=== PATIENT | female | born 1945 | race Caucasian/White ===

== ENCOUNTER 2019-07-17 14:49 | Observation (INO) | payer MEDICARE, BC, OTHER ==
[~2019-07-17] VITALS: Ht 152.4 cm; Wt 65.8 kg
[2019-07-17] MEDS ORDERED: NS 1,000 ML IV ONE (15:15)
[2019-07-17 15:32] LABS: OSMOLALITY SERUM 282 MOSM/KG (280-301)
[2019-07-17 15:34] LABS: BASO % 0.5 % (0.0-1.0); EOS # 0.2 10^3/uL (0.0-0.5); EOS % 2.6 % (0.0-3.0); HEMATOCRIT 28.3 % (36.0-47.0); HEMOGLOBIN 9.6 g/dl (12.0-15.5); LYMPH # 1.8 10^3/uL (1.5-5.0); LYMPH % 28.5 % (24.0-44.0); MEAN CORPUSCULAR HEMOGLOBIN 32.4 pg (27.0-33.0); MEAN CORPUSCULAR HGB CONC 33.9 g/dl (32.0-36.5); MEAN CORPUSCULAR VOLUME 95.6 fl (80.0-96.0); MONO # 0.7 10^3/uL (0.0-0.8); MONO % 10.1 % (0.0-5.0); NEUTROPHILS # 3.7 10^3/uL (1.5-8.5); PLATELET COUNT, AUTOMATED 149 10^3/uL (150-450); RED BLOOD COUNT 2.96 10^6/uL (4.00-5.40); WHITE BLOOD COUNT 6.4 10^3/uL (4.0-10.0)
[2019-07-17 15:41] LABS: ALBUMIN 2.8 GM/DL (3.2-5.2); ALT/SGPT 42 U/L (12-78); BILIRUBIN,DIRECT < 0.1 MG/DL (0.0-0.2); BILIRUBIN,TOTAL 0.2 MG/DL (0.2-1.0); BLOOD UREA NITROGEN 33 MG/DL (7-18); C REACTIVE PROTEIN QUANTITATIV < 0.30 MG/DL (0.00-0.30); CALCIUM LEVEL 8.7 MG/DL (8.8-10.2); CARBON DIOXIDE LEVEL 30 MEQ/L (21-32); CHLORIDE LEVEL 102 MEQ/L (98-107); CK-MB VALUE MASS 2.5 NG/ML (<3.6); CPK CREATINE PHOSPHOKINASE 86 U/L (26-192); CREATININE FOR GFR 2.93 MG/DL (0.55-1.30); GLOMERULAR FILTRATION RATE 16.8 (>39); GLUCOSE, FASTING 41 MG/DL (70-100); LIPASE 147 U/L (73-393); MB/CK RELATIVE INDEX 2.91 (< OR =4); POTASSIUM SERUM 3.6 MEQ/L (3.5-5.1); SODIUM LEVEL 136 MEQ/L (136-145); TOTAL PROTEIN 6.2 GM/DL (6.4-8.2); TROPONIN I 0.03 NG/ML (< 0.10)
[2019-07-17] MEDS ORDERED: DEXTROSE 50% 50 ML SYRINGE As Ordered ONE (15:45)
[2019-07-17] MEDS ORDERED: DEXTROSE 50% 50 ML SYRINGE IV STA (15:45)
--- NOTE | 2019-07-17 15:51 | REP ---
CT brain: 07/17/2019. Indication: Altered mental status. Stroke. Comparison: None. Technique: Unenhanced axial CT images of the brain were obtained from skull base to vertex. Findings: There is no acute intracranial hemorrhage, acute cortical infarction, mass effect or hydrocephalous. Diffuse volume loss is present. Patchy areas of abnormal cerebral hemisphere white matter hypoattenuation are noted most consistent with sequelae of chronic small vessel disease. Impression: No acute intracranial process. Electronically Signed by Arash Tillman DO 07/17/2019 03:43 P
--- NOTE | 2019-07-17 15:59 | REP ---
Portable chest, 03:31 p.m., single AP view with the the patient sitting: There are no comparisons. There are no focal infiltrates. There is mild interstitial coarsening. Cardiac size is enlarged. There is a dual-chamber pacemaker/AICD. The scott, mediastinum, skeletal structures are unremarkable. Impression: Interstitial coarsening. Cardiomegaly. Pacemaker. No comparisons. Electronically Signed by Demetrius Lamb MD 07/17/2019 03:51 P
[2019-07-17] MEDS ORDERED: LOPR1TAB6 PO (16:11)
[2019-07-17] MEDS ORDERED: JANU25TA PO (16:11)
[2019-07-17] MEDS ORDERED: QUET1TAB7 PO (16:11)
[2019-07-17 16:15] LABS: VENOUS BASE EXCESS 0.4 (-2.0-2.0); VENOUS HCO3 25.6 MEQ/L (23.0-27.0); VENOUS O2 SATURATION 97.9 % (60.0-80.0); VENOUS PARTIAL PRESSURE O2 118.7 mmHg (30.0-50.0); VENOUS PH 7.383 UNITS (7.330-7.430); VENOUS STANDARD HCO3 24.9 MEQ/L
[2019-07-17] MEDS ORDERED: IRON27TA2 PO (16:20)
[2019-07-17] MEDS ORDERED: ALLO100T PO (16:20)
[2019-07-17] MEDS ORDERED: EZET10TA21 PO (16:20)
[2019-07-17] MEDS ORDERED: OLME40TA PO (16:20)
[2019-07-17] MEDS ORDERED: FOLI400T PO (16:20)
[2019-07-17] MEDS ORDERED: ALPR0.5T3 PO (16:20)
[2019-07-17] MEDS ORDERED: B-12100021 PO (16:20)
[2019-07-17] MEDS ORDERED: AMLO5TAB6 PO (16:20)
[2019-07-17] MEDS ORDERED: FENO48TA13 PO (16:20)
[2019-07-17] MEDS ORDERED: MUPI2OI TOP (16:20)
[2019-07-17] MEDS ORDERED: BUME1TAB3 PO ×2 (16:20→18:42)
[2019-07-17] MEDS ORDERED: ASPI1TAB23 PO (16:20)
[2019-07-17] MEDS ORDERED: ROSU40TA4 PO (16:20)
[2019-07-17] MEDS ORDERED: D3-5CAP PO (16:20)
[2019-07-17] MEDS ORDERED: OMEGCAP4 PO (16:20)
[2019-07-17] MEDS ORDERED: DEXTROSE 50% 50 ML SYRINGE IV PRN (17:45)
[2019-07-17] MEDS ORDERED: GLUCOSE 4 GM CHEW TABLET PO PRN (17:45)
[2019-07-17] MEDS ORDERED: ACETAMINOPHEN TAB 650MG DOSE (2X325MG) PO PRN (17:45)
[2019-07-17] MEDS ORDERED: MAALOX 30 ML SUSP *UDC PO PRN (17:45)
[2019-07-17] MEDS ORDERED: GLUCAGON FOR INJ 1 MG VIAL (J1610) SC PRN (17:45)
[2019-07-17] MEDS ORDERED: MOM 30ML SUSPENSION UDC PO PRN (17:45)
--- NOTE | 2019-07-17 18:02 | ECGEPIP ---
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
--- NOTE | 2019-07-17 18:15 | REPVR ---
PROCEDURE INFORMATION: Exam: CT Chest Without Contrast Exam date and time: 07/17/2019 5:38 PM Clinical history: 73 years old, female; Other: Altered mental status TECHNIQUE: Imaging protocol: Computed tomography of the chest without contrast. Radiation optimization: All CT scans at this facility use at least one of these dose optimization techniques: automated exposure control; mA and/or kV adjustment per patient size (includes targeted exams where dose is matched to clinical indication); or iterative reconstruction. COMPARISON: CR PORTABLE CHEST X-RAY 07/17/2019 3:27 PM FINDINGS: Tubes, catheters and devices: IACD is present with lead tip in the right ventricle. A cardiac pacing lead is present with its tip in the right atrium. Lungs: Minimal dependent atelectasis within the lung bases. No pulmonary consolidation. Pleural space: Unremarkable. No pneumothorax. No pleural effusion. Heart: Moderate coronary atherosclerosis. Coronary artery stents. Mild cardiomegaly. Aorta: Mild atherosclerosis of the thoracic aorta. No aortic aneurysm. Lymph nodes: Unremarkable. No enlarged lymph nodes. Bones/joints: Mild degenerative spondylosis of the thoracic spine. No fracture or suspicious bone lesion. Soft tissues: Unremarkable. IMPRESSION: No acute abnormality. Electronically signed by: Aurelio Plaza On 07/17/2019 18:15:34 PM
--- NOTE | 2019-07-17 18:23 | REPVR ---
PROCEDURE INFORMATION: Exam: CT Abdomen And Pelvis Without Contrast Exam date and time: 07/17/2019 5:38 PM Clinical history: 73 years old, female; Other: Altered mental status TECHNIQUE: Imaging protocol: Computed tomography of the abdomen and pelvis without contrast. Radiation optimization: All CT scans at this facility use at least one of these dose optimization techniques: automated exposure control; mA and/or kV adjustment per patient size (includes targeted exams where dose is matched to clinical indication); or iterative reconstruction. COMPARISON: No relevant prior studies available. FINDINGS: Liver: Unremarkable. No mass. Gallbladder and bile ducts: Tiny calcified gallstones. No gallbladder wall thickening or pericholecystic inflammation. Pancreas: Unremarkable. No ductal dilation. Spleen: Unremarkable. No splenomegaly. Adrenals: Normal. No mass. Kidneys and ureters: Fluid density lesion measuring 16 mm within the left kidney mid pole, likely cyst. Unremarkable right kidney. No hydronephrosis. Stomach and bowel: Minimal colonic diverticulosis. No diverticulitis. No bowel obstruction. Unremarkable stomach. Appendix: No evidence of appendicitis. Intraperitoneal space: No free air. No significant fluid collection. Vasculature: Moderate atherosclerosis of the abdominal aorta with severe atherosclerosis of branch vessels. Lymph nodes: No enlarged lymph nodes. Bladder: Unremarkable as visualized. Reproductive: Right adnexal cystic lesion with partial rim calcification, measuring 3.2 cm. Further evaluation with pelvic ultrasound is recommended. IUD within the uterus. Unremarkable left adnexa. Bones/joints: Degenerative spondylosis of the lumbar spine with grade 1 anterolisthesis of L4. No acute fracture or suspicious bone lesion. Soft tissues: Small umbilical hernia containing fat. Soft tissue density within the subcutaneous fat of the left anterior abdominal wall, likely secondary to medication injection site. IMPRESSION: 1. No acute abnormality. 2. Cholelithiasis. 3. Severe atherosclerosis. 4. IUD within the uterus. 5. Right adnexal cystic lesion measuring 3.2 cm. Further evaluation with pelvic ultrasound is recommended. Electronically signed by: Aurelio Plaza On 07/17/2019 18:23:38 PM
--- NOTE | 2019-07-17 18:31 | HPEPDOC ---
General Date of Admission 07/17/19 Date of Service: Jul 17, 2019 Chief Complaint The patient is a 73-year-old female admitted with a reason for visit of Unresponsive. Source: Patient, Family Exam Limitations: No limitations Timing/Duration: Other Severity: Moderate Associated Symptoms: Other (, slurred speech and unresponsiveness) History of Present Illness 79 years old white female with past medical history of diabetes mellitus type 2, [place] status post stent, status post defibrillator and permanent pacemaker placement. Follows up with her physicians at [place], [place]. She has a Here and comes over frequently to visit her. As per patient's family last few days she's been having an episode of like slurred speech and confusion "like a drunk" and at sometime unresponsiveness, but again today she called fore help and she became unresponsive and 911 was called and patient was brought to emergency room. Initially the fingerstick was 120s, but later on was found to be very low in 20s,Patient was given D50 and she revived. We were called in to admit patient for observation. Patient is still has some slurred speech which is improving during the interview and offers no new complaints at the present time. Home Medications Scheduled Allopurinol (Allopurinol) 100 Mg Tablet, 100 MG PO DAILY, (Reported) Amlodipine Besylate (Amlodipine Besylate) 5 Mg Tablet, 5 MG PO DAILY, (Reported) Aspirin (Aspirin EC) 325 Mg Tablet.dr, 325 MG PO DAILY, (Reported) Brimonidine Tartrate/Timolol (Combigan 0.2%-0.5% Eye Drops) 5 Ml Drops, 1 DROP OU TID, (Reported) Bumetanide (Bumetanide) 1 Mg Tablet, 1 MG PO Q2D, (Reported) ALTERNATE DAYS Bumetanide (Bumetanide) 1 Mg Tablet, 2 MG PO Q2D, (Reported) ALTERNATE DAYS Cholecalciferol (Vitamin D3) (Vitamin D3) 1,000 Unit Tablet, 1,000 UNIT PO DAILY, (Reported) Cyanocobalamin (Vitamin B-12) (B-12) 1,000 Mcg Tablet, 1,000 MCG PO DAILY, (Reported) Ezetimibe (Ezetimibe) 10 Mg Tablet, 10 MG PO DAILY, (Reported) Fenofibrate Nanocrystallized (Fenofibrate) 48 Mg Tablet, 48 MG PO DAILY, (Reported) Ferrous Gluconate (Ferrous Gluconate) 324 Mg Tablet, 324 MG PO DAILY, (Reported) Folic Acid (Folic Acid) 1 Mg Tablet, 1 MG PO DAILY, (Reported) Metoprolol Tartrate (Lopressor) 50 Mg Tablet, 50 MG PO TID, (Reported) Olmesartan Medoxomil (Olmesartan Medoxomil) 40 Mg Tablet, 40 MG PO DAILY, (Reported) [place]-3/Dha/Epa/Fish Oil ([place]-3 Fish Oil 1,000 mg Sfgl) 1,000 Mg Capsule, 1 CAP PO BID, (Reported) Risedronate Sodium (Risedronate Sodium) 35 Mg Tablet, 35 MG PO DAILY, (Reported) Rosuvastatin Calcium (Rosuvastatin Calcium) 40 Mg Tablet, 40 MG PO DAILY, (Reported) Scheduled PRN Alprazolam (Alprazolam) 0.5 Mg Tablet, 0.5 MG PO QID PRN for sleep, (Reported) Quetiapine Fumarate (Quetiapine Fumarate) 25 Mg Tablet, 50 MG PO QPM PRN for MOOD, (Reported) Miscellaneous Medications [Comments] , (Reported) PT AND BOTH CONFUSED ABOUT WHAT PT TAKES. MED REC WAS MADE WITH EXTERNAL HISTORY WELL A MED BAG THEY BROUGHT TO THE HOSPITAL. Allergies Coded Allergies: Sulfa (Sulfonamide Antibiotics) (Verified Allergy, Unknown, unknown, 07/17/19) Past Medical History Medical History Diabetes mellitus, hypertension, PA, stent placement, defibrillator, permanent pacemaker, hyperlipidemia Surgical History , Cataract surgeries and a stent placement Family History Significant Family History: No pertinent family hx Social History * Smoker: Denies Alcohol: Denies Drugs: denies A-FIB/CHADSVASC A-FIB History Current/History of A-Fib/PAF?: No Review of Systems Constitutional: Reports: Chills, Weakness Eyes: Denies: Pain, Vision change, Conjunctivae inflammation, Eyelid inflammation, Redness, Other ENT: Denies: Head Aches, Ear Pain, Dysphagia, Sinus Congestion, Post Nasal Drip, Sore Throat, Epistaxis, Other Symptoms Skin: Denies: Rash, Lesions, Jaundice, Bruising, Itching, Dry, Breakdown, Nail Changes, Other Pulmonary: Denies: Dyspnea, Cough, Pleuritic Chest Pain, Other Symptoms Cardiovascular: Denies: Chest Pain, Palpitations, Orthopnea, Paroxysmal Noc. Dyspnea, Edema, Lt Headedness, Other Symptoms Gastrointestinal: Denies: Nausea, Vomiting, Abdominal Pain, Diarrhea, Constipation, Melena, Hematochezia, Other Symptoms Genitourinary: Denies: Dysuria, Frequency, Incontinence, Hematuria, Retention, Other Symptoms Hematologic: Denies: Bruising, Bleeding Excessively, Petecchia, Purpura, Enlarged Lymph Nodes, Other Hematologic Endocrine: Denies: Polydipsia, Polyphagia, Polyuria, Heat Intolerance, Cold Intolerance, Other Endocrine Sx Musculoskeletal: Denies: Neck Pain, Back Pain, Shoulder Pain, Arm Pain, Hand Pain, Leg Pain, Foot Pain, Joint Pain, Muscle Pain, Spasms, Other Symptoms Neurological: Reports: Change in speech, Other Symptoms (slurring of his speech later on pass and out progressively getting worse since last 2 days) Psych: Reports: Mood Normal Physical Examination General Exam: Positive: Alert Eye Exam: Positive: PERRLA, Conjunctiva & lids normal ENT Exam: Positive: Atraumatic, Mucous membr. moist/pink Neck Exam: Positive: Supple Chest Exam: Positive: Normal air movement Heart Exam: Positive: Rate Normal, Normal S1, Normal S2 Abdomen Exam: Positive: Normal bowel sounds Extremity Exam: Positive: Normal pulses Skin Exam: Positive: Nl turgor and temperature Neuro Exam: Positive: Normal Gait, Normal Speech, Strength at 5/5 X4 ext, Sensation Intact, Cranial Nerves 3-12 NL Psych Exam: Positive: Mood NL, Oriented x 3 Vital Signs Vital Signs Date Time Temp Pulse Resp B/P (MAP) Pulse Ox O2 Delivery O2 Flow Rate FiO2 07/17/19 17:15 45 101/50 (67) 96 Room Air 07/17/19 14:56 96.1 22 Laboratory Data Labs 24H Laboratory Tests 2 07/17/19 15:06: Anion Gap 4L, Glomerular Filtration Rate 16.8L, Osmolality 282, Calcium Level 8.7L, Total Bilirubin 0.2, Direct Bilirubin < 0.1, Aspartate Amino Transf (AST/SGOT) 43H, Alanine Aminotransferase (ALT/SGPT) 42, Alkaline Phosphatase 72, Total Creatine Kinase 86, Creatine Kinase MB 2.5, Creatine Kinase MB Relative Index 2.91, Troponin I 0.03, C-Reactive Protein, Quantitative < 0.30, Total Protein 6.2L, Albumin 2.8L, Albumin/Globulin Ratio 0.82L, Lipase 147, Thyroid Stimulating Hormone (TSH) 1.390 07/17/19 15:14: Immature Granulocyte % (Auto) 0.3, Neutrophils (%) (Auto) 58.0, Lymphocytes (%) (Auto) 28.5, Monocytes (%) (Auto) 10.1H, Eosinophils (%) (Auto) 2.6, Basophils (%) (Auto) 0.5, Neutrophils # (Auto) 3.7, Lymphocytes # (Auto) 1.8, Monocytes # (Auto) 0.7, Eosinophils # (Auto) 0.2, Basophils # (Auto) 0.0, Nucleated Red Blood Cells % (auto) 0.0 07/17/19 15:42: Bedside Glucose (Misc Panel) 29*L 07/17/19 15:43: Bedside Glucose (Misc Panel) 30*L 07/17/19 15:54: Blood Gas Bicarbonate Standard 24.9, Venous Blood pH 7.383, Venous Blood Partial Pressure CO2 44.0, Venous Blood Partial Pressure O2 118.7H, Venous Blood Total Carbon Dioxide 27.0, Venous Blood HCO3 25.6, Venous Blood Oxygen Saturation 97.9H, Venous Blood Base Excess 0.4, Lactic Acid Level 1.1, Ammonia 33H 07/17/19 16:29: Bedside Glucose (Misc Panel) 132H CBC/BMP Laboratory Tests 07/17/19 15:06 07/17/19 15:14 Microbiology Microbiology 07/17/19 Blood Culture, Received Pending 07/17/19 Blood Culture, Received Pending Problems (1) Syncope and collapse Status: Acute Problem Text: 73 years old white female past medical history of diabetes mellitus, PA, hypertension, hyperlipidemia, status post defibrillator, permanent pacemaker and stent placed, status post cataract surgery, had been experiencing altered mentation, confusion, syncopal-like episode, slurred speech and unresponsiveness since last 2 days, but it got worse today she completely passed out and became unresponsive and EMS arrived, her fingerstick was within normal range, but mentally she came to ER, her fingerstick was 20s and she received D5W and she revived back. Patient is still had some slurred speech while I was interviewing her, but it is progressively got better. History was obtained from her teacher learning disabled at the bedside. EKG pacemaker rhythm. Chest x-ray within normal limits. CT head no acute changes Syncope, most likely secondary to hypoglycemia Admit patient to PCU Date blood sugar every 4 hour without any coverage just to observe the numbers Hold by mouth antidiabetic meds Hold the patient's by mouth doxycycline. She is being taken as an outpatient for right foot infection Hemoglobin A1c in a.m. cbc CMP, TSH in a.m. DVT prophylaxis with Lovenox Carbohydrate consistent diet Activity as tolerated (2) Hypoglycemia Status: Acute Problem Text: Most likely secondary to an oral hypoglycemic agents and interaction with possibly doxycycline other medications such as Seroquel, which has been recently started Hold Seroquel oral hypoglycemic agents and doxycycline Monitor fingerstick blood sugar every 4 hours for 24 hours D5 half-normal saline at 70 mL per hour For the change in management as per patient's lab work (3) Diabetes mellitus Status: Chronic Problem Text: As above (4) HTN (hypertension) Status: Chronic Problem Text: Continue home meds including amlodipine and metoprolol Will monitor on telemetry Changed dosage of meds accordingly (5) HLD (hyperlipidemia) Status: Chronic Problem Text: Fasting lipids have been ordered Plan / VTE VTE Prophylaxis Ordered?: Yes LIANET TOVAR MD Jul 17, 2019 18:31
[2019-07-17] MEDS ORDERED: VITA-144 PO (18:42)
[2019-07-17] MEDS ORDERED: FERR325T16 PO (18:42)
[2019-07-17] MEDS ORDERED: RISE1TAB8 PO (18:42)
[2019-07-17] MEDS ORDERED: FOLI1TAB11 PO (18:42)
[2019-07-17] MEDS ORDERED: COMB0.2S OU (18:42)
[2019-07-17] MEDS ORDERED: COMMENTS (18:44)
[2019-07-17] MEDS: D5W/0.45% SODIUM CHLORIDE 1,000 ML IV SCH (18:58)
[2019-07-17 20:00] VITALS: BP_SYST 134; BP_SYST 160; BP_DIAS 58; BP_DIAS 64
[2019-07-17] MEDS ORDERED: ROSUVASTATIN 10 MG TAB (CRESTOR) PO SCH (21:00)
[2019-07-17] MEDS ORDERED: FENOFIBRATE 48 MG TAB (TRICOR) PO SCH (21:00)
[2019-07-17] MEDS ORDERED: EZETIMIBE 10 MG TAB (ZETIA) PO SCH (21:00)
[2019-07-17] MEDS: DOCUSATE SODIUM 100 MG CAP PO SCH (21:16)
[2019-07-17] MEDS: METOPROLOL TART 50 MG TAB PO SCH (21:16)
[2019-07-17] MEDS ORDERED: LORazepam 2 MG TAB PO PRN (22:30)
[2019-07-17] MEDS: THIAMINE 100 MG TAB PO SCH (23:17)
[2019-07-17 23:53] LABS: ETHYL ALCOHOL (ETHANOL) < 0.003 % (0.000-0.010); TROPONIN I 0.04 NG/ML (< 0.10)
[2019-07-18] VITALS: BP 148/64
[2019-07-18 04:00] VITALS: BP 132/56
[2019-07-18] MEDS: METOPROLOL TART 50 MG TAB PO SCH (05:50)
[2019-07-18 06:06] LABS: HEMATOCRIT 26.4 % (36.0-47.0); HEMOGLOBIN 8.8 g/dl (12.0-15.5); MEAN CORPUSCULAR HEMOGLOBIN 32.1 pg (27.0-33.0); MEAN CORPUSCULAR HGB CONC 33.3 g/dl (32.0-36.5); MEAN CORPUSCULAR VOLUME 96.4 fl (80.0-96.0); PLATELET COUNT, AUTOMATED 114 10^3/uL (150-450); RED BLOOD COUNT 2.74 10^6/uL (4.00-5.40); WHITE BLOOD COUNT 4.9 10^3/uL (4.0-10.0)
[2019-07-18 06:36] LABS: ALBUMIN 2.3 GM/DL (3.2-5.2); BILIRUBIN,TOTAL 0.2 MG/DL (0.2-1.0); CALCIUM LEVEL 8.2 MG/DL (8.8-10.2); CHOLESTEROL RISK RATIO 2.071 (<5); CREATININE FOR GFR 2.43 MG/DL (0.55-1.30); GLOMERULAR FILTRATION RATE 20.8 (>39); MAGNESIUM LEVEL 1.7 MG/DL (1.8-2.4); THYROID STIMULATING HORMONE 0.791 uIU/ML (0.358-3.740); TOTAL PROTEIN 5.7 GM/DL (6.4-8.2); TROPONIN I 0.02 NG/ML (< 0.10)
[2019-07-18] MEDS ORDERED: MAG SULF 1GM/100ML (MAG RUN) 1 GM in IV 1 EA IV ONE (07:30)
[2019-07-18 08:00] VITALS: BP 129/85
[2019-07-18] MEDS: D5W/0.45% SODIUM CHLORIDE 1,000 ML IV SCH (08:03)
[2019-07-18] MEDS ORDERED: MULTIVITAMINS/MINERALS THERAP 1 TAB PO SCH (09:00)
[2019-07-18] MEDS ORDERED: ALLOPURINOL 100 MG TAB PO SCH (09:00)
[2019-07-18] MEDS ORDERED: FOLIC ACID 1 MG TAB PO SCH (09:00)
[2019-07-18] MEDS ORDERED: ASPIRIN 325 MG TAB PO SCH (09:00)
[2019-07-18] MEDS ORDERED: amLODIPine 5 MG TAB PO SCH (09:00)
[2019-07-18] MEDS: DOCUSATE SODIUM 100 MG CAP PO SCH (09:04)
[2019-07-18] MEDS: THIAMINE 100 MG TAB PO SCH (09:04)
[2019-07-18 09:05] VITALS: BP 136/58
--- NOTE | 2019-07-18 09:30 | DS.PDOC ---
Discharge Summary General Date of Admission Jul 17, 2019 at 14:50 Date of Discharge 07/18/19 Discharge Summary PROCEDURES PERFORMED DURING STAY: None. ADMITTING DIAGNOSES: 1. Hypoglycemia. Syncope and collapse. DISCHARGE DIAGNOSES: 1. , Hypoglycemia, syncope and collapse, diabetes mellitus, hypertriglyce ridemia, hyperlipidemia, mood disorder. COMPLICATIONS/CHIEF COMPLAINT: Hypoglycemia/Syncope And Collapse. HISTORY OF PRESENT ILLNESS: 79 years old white female with past medical history of diabetes mellitus type 2, [place] status post stent, status post defibrillator and permanent pacemaker placement. Follows up with her physicians at [place], [place]. She has a Here and comes over frequently to visit her. As per patient's family last few days she's been having an episode of like slurred speech and confusion "like a drunk" and at sometime unresponsiveness, but again today she called fore help and she became unresponsive and 911 was called and patient was brought to emergency room. Initially the fingerstick was 120s, but later on was found to be very low in 20s,Patient was given D50 and she revived. We were called in to admit patient for observation. Patient is still has some slurred speech which is improving during the interview and offers no new complaints at the present time.. HOSPITAL COURSE: [Patient was admitted with the diagnoses of syncope: Secondary to hypoglycemia with patient been feeling last 2 days and has not been eating. He regularly as she is been trying to close her Up.. The Patient Was Started on D5 Half-Normal Saline. All Her Oral Hypoglycemic Agents Were on Hold. Her Blood Sugar Is 130 Now. She Is Alert, Oriented 3, in No Apparent Distress and Has Been Maintaining Her Blood Sugar More Than 70. She wants to go home and follow with her own primary care physician at [place], [place]. Will DC patient's doxycycline and adjust her insulin dosage and hold her by mouth oral hypoglycemic agents and discharge her. She can follow with her own physician in the 2-3 days and get her polypharmacy corrected and diabetic management corrected. Patient's hemoglobin A1c is 8. . Patient was also advised to see her CANCER REGISTRY COORDINATOR and get her in the 10 IUD removed as soon as possible to avoid any perforation or infection DISCHARGE MEDICATIONS: Please see below. ALLERGIES: Please see below. PHYSICAL EXAMINATION ON DISCHARGE: VITAL SIGNS: Please see below. GENERAL: Within normal limits HEENT: PERRLA, extraocular muscles intact NECK: Supple CARDIOVASCULAR EXAMINATION: S1, S2, regular RESPIRATORY EXAMINATION: Clear to A&P ABDOMINAL EXAMINATION: , Soft, nontender, bowel sound present EXTREMITIES: No clubbing, cyanosis edema SKIN: Normal NEUROLOGICAL EXAMINATION: . No focal motor sensory deficit PSYCHIATRIC EXAMINATION: Normal LABORATORY DATA: Please see below. IMAGING: CT abdomen and pelvis:IMPRESSION: 1. No acute abnormality. 2. Cholelithiasis. 3. Severe atherosclerosis. 4. IUD within the uterus. 5. Right adnexal cystic lesion measuring 3.2 cm. Further evaluation with pelvic ultrasound is recommended. PROGNOSIS: Good ACTIVITY: As tolerated. DIET: About a consistent diet DISCHARGE PLAN: Follow with PCP soon as possible DISPOSITION: . Home DISCHARGE INSTRUCTIONS: 1. As per discharge instructions. ITEMS TO FOLLOWUP ON ON OUTPATIENT: 1. Follow with PCP. DISCHARGE CONDITION: Stable. TIME SPENT ON DISCHARGE: 35 minutes. Vital Signs/I&Os Vital Signs Date Time Temp Pulse Resp B/P (MAP) Pulse Ox O2 Delivery O2 Flow Rate FiO2 07/18/19 09:05 80 136/58 07/18/19 04:00 97.3 18 99 Room Air I&O- Last 24 Hours up to 6 AM 07/18/19 06:00 Intake Total 1850 ml Output Total 450 ml Balance 1400 ml Laboratory Data Labs 24H Laboratory Tests 2 07/17/19 15:06: Anion Gap 4L, Glomerular Filtration Rate 16.8L, Osmolality 282, Calcium Level 8.7L, Total Bilirubin 0.2, Direct Bilirubin < 0.1, Aspartate Amino Transf (AST/SGOT) 43H, Alanine Aminotransferase (ALT/SGPT) 42, Alkaline Phosphatase 72, Total Creatine Kinase 86, Creatine Kinase MB 2.5, Creatine Kinase MB Relative I ndex 2.91, Troponin I 0.03, C-Reactive Protein, Quantitative < 0.30, Total Protein 6.2L, Albumin 2.8L, Albumin/Globulin Ratio 0.82L, Lipase 147, Thyroid Stimulating Hormone (TSH) 1.390 07/17/19 15:14: Immature Granulocyte % (Auto) 0.3, Neutrophils (%) (Auto) 58.0, Lymphocytes (%) (Auto) 28.5, Monocytes (%) (Auto) 10.1H, Eosinophils (%) (Auto) 2.6, Basophils (%) (Auto) 0.5, Neutrophils # (Auto) 3.7, Lymphocytes # (Auto) 1.8, Monocytes # (Auto) 0.7, Eosinophils # (Auto) 0.2, Basophils # (Auto) 0.0, Nucleated Red Blood Cells % (auto) 0.0 07/17/19 15:42: Bedside Glucose (Misc Panel) 29*L 07/17/19 15:43: Bedside Glucose (Misc Panel) 30*L 07/17/19 15:54: Blood Gas Bicarbonate Standard 24.9, Venous Blood pH 7.383, Venous Blood Partial Pressure CO2 44.0, Venous Blood Partial Pressure O2 118.7H, Venous Blood Total Carbon Dioxide 27.0, Venous Blood HCO3 25.6, Venous Blood Oxygen Saturation 97.9H, Venous Blood Base Excess 0.4, Lactic Acid Level 1.1, Ammonia 33H 07/17/19 16:29: Bedside Glucose (Misc Panel) 132H 07/17/19 21:15: Bedside Glucose (Misc Panel) 108 07/17/19 22:56: Troponin I 0.04#, Ethyl Alcohol Level < 0.003 07/18/19 01:15: Urine Color STRAW, Urine Appearance HAZY, Urine pH 5.0, Urine Specific [place] 1.004, Urine Protein 2+H, Urine Glucose (UA) NEGATIVE, Urine Ketones NEGATIVE, Urine Blood 1+H, Urine Nitrite NEGATIVE, Urine Bilirubin NEGATIVE, Urine Urobilinogen 0.2, Urine Leukocyte Esterase NEGATIVE, Urine WBC (Auto) 3, Urine RBC (Auto) 4H, Urine Hyaline Casts (Auto) 8, Urine Bacteria (Auto) NEGATIVE, Urine Squamous Epithelial Cells 0, Urine Mucus (Auto) SMALL, Urine Sperm (Auto) 07/18/19 01:56: Bedside Glucose (Misc Panel) 133H 07/18/19 05:33: Nucleated Red Blood Cells % (auto) 0.0, Anion Gap 5L, Glomerular Filtration Rate 20.8L, Estimated Mean Plasma Glucose 183H, Hemoglobin A1c 8.0, Calcium Level 8.2L, Magnesium Level 1.7L, Total Bilirubin 0.2, Aspartate Amino Transf (AST/SGOT) 68H, Alanine Aminotransferase (ALT/SGPT) 52, Alkaline Phosphatase 63, Troponin I 0.02#, Total Protein 5.7L, Albumin 2.3L, Albumin/Globulin Ratio 0.68L, Triglycerides Level 172H, Total Cholesterol 87, LDL Cholesterol 11, Non- HDL Cholesterol (LDL + VLDL) 45, Total HDL Cholesterol 42, Cholesterol/HDL Ratio 2.071, Thyroid Stimulating Hormone (TSH) 0.791 CBC/BMP Laboratory Tests 07/17/19 15:06 07/17/19 15:14 07/18/19 05:33 FSBS Laboratory Tests Test 07/17/19 15:42 07/17/19 15:43 07/17/19 16:29 07/17/19 21:15 Range/Units Bedside Glucose (Misc Panel) 29 30 132 108 83-110 MG/DL Test 07/18/19 01:56 Range/Units Bedside Glucose (Misc Panel) 133 83-110 MG/DL Microbiology Microbiology 07/17/19 Blood Culture, Received Pending 07/17/19 Blood Culture, Received Pending Discharge Medications Scheduled Allopurinol (Allopurinol) 100 Mg Tablet, 100 MG PO DAILY, (Reported) Amlodipine Besylate (Amlodipine Besylate) 5 Mg Tablet, 5 MG PO DAILY, (Reported) Aspirin (Aspirin EC) 325 Mg Tablet.dr, 325 MG PO DAILY, (Reported) Brimonidine Tartrate/Timolol (Combigan 0.2%-0.5% Eye Drops) 5 Ml Drops, 1 DROP OU TID, (Reported) Bumetanide (Bumetanide) 1 Mg Tablet, 1 MG PO Q2D, (Reported) ALTERNATE DAYS Bumetanide (Bumetanide) 1 Mg Tablet, 2 MG PO Q2D, (Reported) ALTERNATE DAYS Cholecalciferol (Vitamin D3) (Vitamin D3) 1,000 Unit Tablet, 1,000 UNIT PO DAILY, (Reported) Cyanocobalamin (Vitamin B-12) (B-12) 1,000 Mcg Tablet, 1,000 MCG PO DAILY, (Reported) Ezetimibe (Ezetimibe) 10 Mg Tablet, 10 MG PO DAILY, (Reported) Fenofibrate Nanocrystallized (Fenofibrate) 48 Mg Tablet, 48 MG PO DAILY, (Reported) Ferrous Gluconate (Ferrous Gluconate) 324 Mg Tablet, 324 MG PO DAILY, (Reported) Folic Acid (Folic Acid) 1 Mg Tablet, 1 MG PO DAILY, (Reported) Metoprolol Tartrate (Lopressor) 50 Mg Tablet, 50 MG PO TID, (Reported) Olmesartan Medoxomil (Olmesartan Medoxomil) 40 Mg Tablet, 40 MG PO DAILY, (Reported) [place]-3/Dha/Epa/Fish Oil ([place]-3 Fish Oil 1,000 mg Sfgl) 1,000 Mg Capsule, 1 CAP PO BID, (Reported) Risedronate Sodium (Risedronate Sodium) 35 Mg Tablet, 35 MG PO DAILY, (Reported) Rosuvastatin Calcium (Rosuvastatin Calcium) 40 Mg Tablet, 40 MG PO DAILY, (Reported) Scheduled PRN Alprazolam (Alprazolam) 0.5 Mg Tablet, 0.5 MG PO QID PRN for sleep, (Reported) Quetiapine Fumarate (Quetiapine Fumarate) 25 Mg Tablet, 50 MG PO QPM PRN for MOOD, (Reported) Miscellaneous Medications [Comments] , (Reported) PT AND BOTH CONFUSED ABOUT WHAT PT TAKES. MED REC WAS MADE WITH EXTERNAL HISTORY WELL A MED BAG THEY BROUGHT TO THE HOSPITAL. Allergies Coded Allergies: Sulfa (Sulfonamide Antibiotics) (Verified Allergy, Unknown, unknown, 07/17/19) LIANET TOVAR MD Jul 18, 2019 09:30
[2019-07-18 12:00] VITALS: BP 172/62
== END 2019-07-18 14:02 | disposition home or self-care (01) ==
LOC: M ED 14:49 → EDBD 14:49 → M ED INP 14:50 → M PCU 19:56
PROVIDERS: ADMIT Internal Medicine; ATTEND Internal Medicine
DX: E11.649 Type 2 diabetes mellitus with hypoglycemia without coma (principal); R55 Syncope and collapse; I10 Essential (primary) hypertension; E78.49 Other hyperlipidemia; I25.2 Old myocardial infarction; Z95.0 Presence of cardiac pacemaker; Z95.810 Presence of automatic (implantable) cardiac defibrillator; Z98.61 Coronary angioplasty status; Z79.82 Long term (current) use of aspirin; Z79.899 Other long term (current) drug therapy; Z88.2 Allergy status to sulfonamides
CPT/HCPCS: 36415; 70450; 71045; 71250; 74176; 80048; 80053; 80061; 80076; 81001; 82140; 82550; 82553; 82803; 83036; 83605; 83690; 83735; 83930; 84443; 84484; 85025; 85027; 86140; 87040; 93005; 93041; 96361; 96374; 99285; G0378; G0480; J3475

== ENCOUNTER 2020-06-19 18:15 | Emergency (ER) | payer MEDICARE, BC, OTHER ==
[~2020-06-19] VITALS: Ht 152.4 cm; Wt 61.4 kg
[~2020-06-19 18:15] MED LIST: ALLO100T PO; ALPR0.5T3 PO; AMLO1TAB24 PO; ASPI1TAB23 PO; B-12100021 PO; BUME1TAB3 PO; COMB0.2S OU; COMMENTS; D3-5CAP PO; EZET10TA21 PO; FENO48TA7 PO; FERR325T16 PO; FOLI1TAB11 PO; FOLI400T PO; IRON27TA2 PO; JANU25TA PO; LOPR1TAB6 PO; MUPI2OI TOP; OLME40TA PO; OMEGCAP4 PO; QUET1TAB7 PO; RISE1TAB8 PO; ROSU40TA4 PO; VITA-144 PO
[2020-06-19 18:51] LABS: VENOUS BASE EXCESS -2.6 (-2.0-2.0); VENOUS HCO3 23.7 MEQ/L (23.0-27.0); VENOUS PARTIAL PRESSURE CO2 46.9 mmHg (38.0-50.0); VENOUS PARTIAL PRESSURE O2 32.2 mmHg (30.0-50.0); VENOUS PH 7.321 UNITS (7.330-7.430); VENOUS STANDARD HCO3 21.5 MEQ/L; VENOUS TOTAL CO2 25.1 MEQ/L (24.0-28.0)
[2020-06-19 18:55] LABS: BASO % 0.6 % (0.0-1.0); EOS % 0.6 % (0.0-3.0); HEMATOCRIT 35.4 % (36.0-47.0); HEMOGLOBIN 11.6 g/dl (12.0-15.5); MEAN CORPUSCULAR HGB CONC 32.8 g/dl (32.0-36.5); MEAN CORPUSCULAR VOLUME 100.9 fl (80.0-96.0); MONO # 0.4 10^3/uL (0.0-0.8); MONO % 5.3 % (0.0-5.0); NEUTROPHILS # 5.7 10^3/uL (1.5-8.5); NEUTROPHILS % 79.2 % (36.0-66.0); PLATELET COUNT, AUTOMATED 205 10^3/uL (150-450); RED BLOOD COUNT 3.51 10^6/uL (4.00-5.40); WHITE BLOOD COUNT 7.2 10^3/uL (4.0-10.0)
[2020-06-19 19:33] LABS: ALT/SGPT 39 U/L (12-78); BILIRUBIN,DIRECT < 0.1 MG/DL (0.0-0.2); BILIRUBIN,TOTAL 0.4 MG/DL (0.2-1.0); TOTAL PROTEIN 6.9 GM/DL (6.4-8.2)
--- NOTE | 2020-06-19 19:33 | REPVR ---
PROCEDURE INFORMATION: Exam: XR Chest, 1 View Exam date and time: 06/19/2020 6:58 PM Age: 74 years old Clinical indication: Chest pain; Additional info: Altered mental status TECHNIQUE: Imaging protocol: XR of the chest Views: 1 view. COMPARISON: Chest x-ray 07/17/2019 FINDINGS: Lungs: No pulmonary consolidation. Linear density superimposed over the left midlung zone just inferior to the cardiac pacer battery consistent with linear atelectasis and/or scar. Pleural space: Unremarkable. No pleural effusion. No pneumothorax. Heart/Mediastinum: The heart is enlarged. A dual lead cardiac pacer/IACD with lead tips superimposed over the cardiac silhouette is unchanged in appearance. Bones/joints: Incompletely healed impacted fracture of the right humerus surgical neck. IMPRESSION: No acute abnormality. Electronically signed by: Aurelio Plaza On 06/19/2020 19:33:25 PM
--- NOTE | 2020-06-19 19:37 | REPVR ---
PROCEDURE INFORMATION: Exam: CT Head Without Contrast Exam date and time: 06/19/2020 6:53 PM Age: 74 years old Clinical indication: Altered mental status/memory loss TECHNIQUE: Imaging protocol: Computed tomography of the head without contrast. Radiation optimization: All CT scans at this facility use at least one of these dose optimization techniques: automated exposure control; mA and/or kV adjustment per patient size (includes targeted exams where dose is matched to clinical indication); or iterative reconstruction. COMPARISON: Head CT 07/17/2019 FINDINGS: Brain: Global cerebral atrophy is consistent with patient's age. Decreased attenuation within the white matter tracts of both cerebral hemispheres is nonspecific but typically seen with small vessel disease/chronic white matter ischemic changes of aging. No intracranial hemorrhage or mass effect. Cerebral ventricles: No ventriculomegaly. Bones/joints: Unremarkable. No acute fracture. Paranasal sinuses: Visualized sinuses are unremarkable. No fluid levels. Mastoid air cells: Visualized mastoid air cells are well aerated. Vasculature: Atherosclerosis of the cavernous carotid arteries. Soft tissues: Unremarkable. IMPRESSION: No acute abnormality. Electronically signed by: Aurelio Plaza On 06/19/2020 19:37:23 PM
--- NOTE | 2020-06-19 19:40 | REPVR ---
PROCEDURE INFORMATION: Exam: US Duplex Lower Extremity Veins, Bilateral Exam date and time: 06/19/2020 7:33 PM Age: 74 years old Clinical indication: Swelling (edema) of limb; Lower extremity, bilateral TECHNIQUE: Imaging protocol: Real-time duplex ultrasound of the extremities with 2-D ramos scale, color Doppler flow and spectral waveform analysis with image documentation. Complete exam focused on the bilateral lower extremity veins. COMPARISON: No relevant prior studies available. FINDINGS: Right deep veins: Unremarkable. The common femoral, femoral, proximal profunda femoral and popliteal veins are patent without thrombus. Normal Doppler waveforms. Normal compressibility and/or augmentation response. Right superficial veins: Not imaged. Left deep veins: Unremarkable. The common femoral, femoral, proximal profunda femoral and popliteal veins are patent without thrombus. Normal Doppler waveforms. Normal compressibility and/or augmentation response. Left superficial veins: Not imaged. Soft tissues: Unremarkable. IMPRESSION: No evidence of deep vein thrombosis. Electronically signed by: Aurelio Plaza On 06/19/2020 19:39:42 PM
[2020-06-19] MEDS ORDERED: amLODIPine 5 MG TAB PO ONE (20:45)
[2020-06-19] MEDS ORDERED: METOPROLOL TART 25 MG TABLET PO ONE (20:45)
[2020-06-19] MEDS ORDERED: KEFL500C17 PO (21:02)
[2020-06-19 21:03] VITALS: BP 184/89
--- NOTE | 2020-06-20 07:03 | ECGEPIP ---
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
== END 2020-06-19 22:02 | disposition home or self-care (01) ==
LOC: EDBD 18:15 → M ED 18:15
DX: E11.649 Type 2 diabetes mellitus with hypoglycemia without coma (principal); I25.2 Old myocardial infarction; E78.5 Hyperlipidemia, unspecified; R00.1 Bradycardia, unspecified; Z79.82 Long term (current) use of aspirin; Z79.899 Other long term (current) drug therapy; Z88.1 Allergy status to other antibiotic agents; Z88.2 Allergy status to sulfonamides; Z95.5 Presence of coronary angioplasty implant and graft